=== PATIENT | female | born 1950 | race Caucasian/White ===

== ENCOUNTER 2018-06-27 11:17 | Day surgery (SDC) | payer OTHER ==
[2018-06-26 11:26] VITALS: BMI 40.1
[2018-06-27 13:33] LABS: #Eosinphils 0.2 thou/uL (0.0-0.7); #Lymphocytes 2.1 thou/uL (1.20-3.40); #Monocytes 0.7 thou/uL (0.11-0.59); %Basophils 0.2 % (0.0-1.0); %Eosinophils 1.7 % (0.0-10.0); %Lymphocytes 23.8 % (21.0-51.0); %Monocytes 7.5 % (0.0-10.0); %Neutrophils 66.9 % (42.0-75.0); Hemoglobin 15.7 g/dL (12.0-16.0); Mean Corpuscular HGB CONC 33.4 g/dL (32.0-36.0); Mean Corpuscular Hemoglobin 30.8 pg (27.0-31.0); Mean Corpuscular Volume 92.2 fL (78.0-98.0); Mean Platelet Volume 7.6 fL (7.4-10.4); Platelet Count 271 thou/uL (130-400); RBC Distribution Width 12.1 % (11.5-14.5)
[2018-06-27 13:40] LABS: INR-International Normal Ratio 1.2; Prothrombin Time 15.6 SEC (12.0-14.7)
[2018-06-27 13:54] LABS: Anion Gap 15 mmol/L (10-20); BUN (Urea Nitrogen) 18 mg/dL (9.8-20.1); Calc. Creatinine Clearance 121 mL/min (70-130); Calcium 9.7 mg/dL (7.8-10.44); Carbon Dioxide 25 mmol/L (23-31); Chloride 102 mmol/L (98-107); Estimated GFR-MDRD 61; Glucose 96 mg/dL (80-115); Potassium 4.4 mmol/L (3.5-5.1); Sodium 138 mmol/L (136-145)
[2018-06-27] MEDS ORDERED: Lidocaine 1% PF 5 ML VIAL ONE (16:35)
[2018-06-27] MEDS ORDERED: PROPOFOL 200 MG/20 ML VIAL ONE (16:35)
--- NOTE | 2018-06-27 21:28 | OP ---
DATE OF PROCEDURE: 06/27/2018 REASON FOR PROCEDURE: Mrs. La is a 68-year-old woman with history of persisting atrial fibrillation with prior failed cardioversions. She is here for repeated cardioversion, on flecainide therapy. She has been anticoagulated without interruption with Eliquis. DESCRIPTION OF PROCEDURE: The patient received propofol by Anesthesia specialist. After adequate level of sedation achieved, a synchronized 200-joule shock promptly converted the patient back to sinus rhythm. Return rate is about 45 to 50 beats per minute. The patient tolerated the procedure well. No complications noted. CONCLUSION: Successful cardioversion. PLAN: Continue Eliquis and flecainide for medical therapy and monitor for recurrent arrhythmias. Consider pulmonary venous isolation procedure if symptomatic atrial fibrillation recurrence is seen. Job ID: [id number]
--- NOTE | 2018-06-30 22:35 | EKG ---
Test Reason : PREOP CARDIOVERSION Blood Pressure : / mmHG Vent. Rate : 096 BPM Atrial Rate : 234 BPM P-R Int : 000 ms QRS Dur : 092 ms QT Int : 404 ms P-R-T Axes : 000 082 031 degrees QTc Int : 510 ms Atrial fibrillation Nonspecific ST abnormality , probably digitalis effect Prolonged QT Abnormal ECG No previous ECGs available Confirmed by Lang LARA ([id number]) on 06/30/2018 10:35:34 PM Referred By: BERNADETTE Confirmed By:Lang LARA
== END 2018-06-27 14:45 | disposition home or self-care (01) ==
LOC: SDC 11:17
PROVIDERS: ATTEND Internal Medicine Cardiovascular Disease
PROC: 5A2204Z Restoration of Cardiac Rhythm, Single (ICD-10-PCS; principal; 2018-06-27)
DX: I48.1 Persistent atrial fibrillation (principal); E78.5 Hyperlipidemia, unspecified; I10 Essential (primary) hypertension; Z79.01 Long term (current) use of anticoagulants; Z79.899 Other long term (current) drug therapy; Z88.0 Allergy status to penicillin; Z98.890 Other specified postprocedural states
CPT/HCPCS: 36415; 80048; 85025; 85610; 85730; 92960; 93005; 93010

== ENCOUNTER 2024-02-20 08:37 | Outpatient (CLI) | payer OTHER ==
[2024-02-20 10:01] LABS: #Basophils 0.03 10x3/uL (0.0-0.2); %Basophils 0.4 % (0.0-1.0); %Eosinophils 0.8 % (0.0-10.0); %Lymphocytes 22.5 % (21.0-51.0); %Neutrophils 69.9 % (42.0-75.0); Hematocrit 40.4 % (36.0-47.0); Hemoglobin 13.8 g/dL (12.0-16.0); Mean Corpuscular HGB CONC 34.2 g/dL (32.0-36.0); Mean Corpuscular Hemoglobin 29.9 pg (27.0-31.0); Mean Corpuscular Volume 87.6 fL (78.0-98.0); Mean Platelet Volume 9.9 fL (7.4-10.4); Platelet Count 263 10x3/uL (130-400); RBC Distribution Width 12.4 % (11.5-14.5); Red Blood Cell (RBC) Count 4.61 mill/uL (4.20-5.40)
[2024-02-20 10:23] LABS: Anion Gap 15 mmol/L (10-20); BUN (Urea Nitrogen) 19 mg/dL (9.8-20.1); Calc. Creatinine Clearance 0 mL/min (70-130); Calcium 9.6 mg/dL (7.8-10.44); Carbon Dioxide 25 mmol/L (23-31); Chloride 103 mmol/L (98-107); Estimated GFR 74; Glucose 108 mg/dL (83-110); Potassium 3.2 mmol/L (3.5-5.1); Sodium 140 mmol/L (136-145)
[2024-02-20 10:25] LABS: INR-International Normal Ratio 1.5; PTT 35.5 sec (22.9-36.1)
== END 2024-02-20 08:38 | disposition home or self-care (01) ==
LOC: LABBT 08:37
PROVIDERS: ATTEND Internal Medicine Cardiovascular Disease
DX: Z01.812 Encounter for preprocedural laboratory examination (principal); I48.0 Paroxysmal atrial fibrillation
CPT/HCPCS: 80048; 85025; 85610; 85730

== ENCOUNTER 2024-02-24 06:00 | Day surgery (SDC) | payer OTHER ==
[2024-02-24 06:50] LABS: Anion Gap 19 mmol/L (10-20); BUN (Urea Nitrogen) 21 mg/dL (9.8-20.1); Calc. Creatinine Clearance 0 mL/min (70-130); Calcium 9.5 mg/dL (7.8-10.44); Carbon Dioxide 22 mmol/L (23-31); Chloride 104 mmol/L (98-107); Estimated GFR 68; Glucose 128 mg/dL (83-110); Potassium 2.7 mmol/L (3.5-5.1); Sodium 142 mmol/L (136-145)
[2024-02-24] MEDS ORDERED: Protamine Sulfate 50 MG/5 ML VIAL ONE ×2 (07:18→10:43)
[2024-02-24] MEDS ORDERED: Heparin 10,000 UNITS/ 10 ML VIAL ONE (07:18)
[2024-02-24] MEDS ORDERED: Heparin 25,000 units/D5W 500 ML ONE (07:18)
[2024-02-24] MEDS ORDERED: Rocuronium Bromide 10 MG/ML (10ML VIAL) ONE ×2 (07:27→09:33)
[2024-02-24] MEDS ORDERED: fentaNYL 50 mcg/mL 1 mL Vial ONE (07:27)
[2024-02-24] MEDS ORDERED: Ondansetron PF 4 MG/2 ML Vial ONE (07:27)
[2024-02-24] MEDS ORDERED: Dexamethasone 20 MG/5 ML VIAL ONE (07:27)
[2024-02-24] MEDS ORDERED: Isoproterenol 0.2 MG/1 ML AMP ONE ×2 (07:35→09:05)
[2024-02-24] MEDS ORDERED: Glycopyrrolate 0.2 MG/ML 5 ML SYRINGE ONE (09:33)
[2024-02-24] MEDS ORDERED: ePHEDrine Sulfate 50 MG/10 ML VIAL ONE (10:42)
[2024-02-24] MEDS ORDERED: PHENYLEPHRINE-NS 100 MCG/ML 10 ML SYRINGE ONE (10:54)
[2024-02-24] MEDS ORDERED: SUGAMMADEX SODIUM 200 MG/2 ML VIAL ONE (11:00)
== END 2024-02-24 15:43 | disposition home or self-care (01) ==
LOC: SDC 06:00
PROVIDERS: ATTEND Internal Medicine Cardiovascular Disease
PROC: 4A023FZ Measurement of Cardiac Rhythm, Percutaneous Approach (ICD-10-PCS; principal; 2024-02-24)
DX: I48.0 Paroxysmal atrial fibrillation (principal); I48.92 Unspecified atrial flutter; I10 Essential (primary) hypertension; E78.5 Hyperlipidemia, unspecified; G47.33 Obstructive sleep apnea (adult) (pediatric); Z90.710 Acquired absence of both cervix and uterus; Z88.0 Allergy status to penicillin; Z79.01 Long term (current) use of anticoagulants; Z79.899 Other long term (current) drug therapy; E66.01 Morbid (severe) obesity due to excess calories
CPT/HCPCS: 36415; 80048; 85347; 93623; 93656; 93657; C1730; C1732; C1733; C1759; C1760; C1766; C1769; C1894; J1100; J1644; J2405; J2720; J3010

== ENCOUNTER 2024-04-13 08:37 | Inpatient (IN) | payer OTHER ==
[2024-04-13 09:46] LABS: #Basophils 0.03 10x3/uL (0.0-0.2); #Eosinophils Less than 0.03 10x3/uL (0.0-0.7); %Basophils 0.2 % (0.0-1.0); %Eosinophils 0.1 % (0.0-10.0); %Lymphocytes 9.4 % (21.0-51.0); %Monocytes 3.2 % (0.0-10.0); %Neutrophils 86.7 % (42.0-75.0); Hematocrit 47.5 % (36.0-47.0); Hemoglobin 16.2 g/dL (12.0-16.0); Mean Corpuscular HGB CONC 34.1 g/dL (32.0-36.0); Mean Corpuscular Hemoglobin 29.3 pg (27.0-31.0); Mean Corpuscular Volume 86.1 fL (78.0-98.0); Mean Platelet Volume 9.3 fL (7.4-10.4); Platelet Count 326 10x3/uL (130-400); Red Blood Cell (RBC) Count 5.52 mill/uL (4.20-5.40)
[2024-04-13 10:02] LABS: ALT (SGPT) 16 U/L (Less than 34); AST (SGOT) 25 U/L (11-34); Albumin 4.2 g/dL (3.1-4.5); Alkaline Phosphatase 88 U/L (40-110); Anion Gap 16 mmol/L (10-20); BUN (Urea Nitrogen) 15 mg/dL (9.8-20.1); Bilirubin, Total 0.8 mg/dL (0.3-1.2); Calc. Creatinine Clearance 0 mL/min (70-130); Calcium 9.9 mg/dL (7.8-10.44); Carbon Dioxide 27 mmol/L (23-31); Chloride 97 mmol/L (98-107); Estimated GFR 64; Globulin 4.2 g/dL (2.4-3.5); Glucose 146 mg/dL (83-110); Protein, Total 8.4 g/dL (5.8-8.1); Sodium 137 mmol/L (136-145)
[2024-04-13 10:16] LABS: Troponin I Less than 0.010 ng/mL (< 0.028)
[2024-04-13] MEDS ORDERED: Potassium Chloride 20 MEQ TAB ONE (11:38)
[2024-04-13] MEDS ORDERED: Bisacodyl 5 MG TAB PO PRN (11:58)
[2024-04-13] MEDS ORDERED: Calcium Carbonate 500 MG ChewTAB PO PRN (11:58)
[2024-04-13] MEDS ORDERED: Senokot S 8.6-50 MG TAB PO PRN (11:58)
[2024-04-13] MEDS: Sertraline 100 MG TAB PO SCH (15:38)
[2024-04-13] MEDS: Metoprolol Tartrate 100 MG TAB PO SCH (15:38)
[2024-04-13] MEDS: Acetaminophen 325 MG TAB PO PRN (15:38)
[2024-04-13] MEDS: Sodium Chloride 0.9% 1,000 ML IV SCH (15:39)
[2024-04-13] MEDS: Apixaban 5 MG TAB PO SCH ×2 (15:41→20:40)
[2024-04-13 16:46] LABS: Bilirubin Negative (Negative); Blood, Urine Negative (Negative); CAUTI Indications for Culture Fever or rigors; Clarity Clear (Clear); Glucose, Urine (Dipstick) Normal (Negative); Ketone, Urine 10 mg/dL (Negative); Leukocyte 25 Leu/uL (Negative); Nitrite Negative (Negative); Protein, Urine (Dipstick) Negative (Neg-Trace); RBC/HPF 0-3 HPF (0-3); Specific Gravity, Urine 1.011 (1.002-1.036); Squamous Epithelial 0-3 HPF (0-3); Urobilinogen Normal mg/dL (Less than 2)
[2024-04-13 16:47] LABS: Bacteria/HPF 1+ HPF (None Seen)
[2024-04-13 16:48] LABS: Urine Culture Reflex No No
[2024-04-13 17:11] LABS: Influenza A by NAA Not Detected (NotDetected); Influenza B by NAA Not Detected (NotDetected); RSV by NAA Not Detected (NotDetected); SARS-CoV-2 NAA Rapid Test Not Detected (NotDetected)
[2024-04-13] MEDS ORDERED: Electrolyte Replacement Protocol 1 EACH FS SCH (17:30)
[2024-04-13] MEDS ORDERED: Electrolyte Replacement Protocol FS PRN (17:45)
[2024-04-13 17:56] LABS: Magnesium 1.8 mg/dL (1.6-2.6)
[2024-04-13 19:17] VITALS: BMI 39.5
[2024-04-13] MEDS: Magnesium 2 GM/50 ML(in water) 2 GM in Premix 1 BAG IVPB SCH (20:39)
[2024-04-13] MEDS: Sertraline 25 MG TAB PO SCH (20:40)
[2024-04-13] MEDS: hydrOXYzine 25 MG TAB PO SCH (20:41)
[2024-04-14 05:26] LABS: #Basophils 0.03 10x3/uL (0.0-0.2); %Basophils 0.3 % (0.0-1.0); %Eosinophils 0.5 % (0.0-10.0); %Lymphocytes 22.8 % (21.0-51.0); %Monocytes 7.1 % (0.0-10.0); Hematocrit 43.5 % (36.0-47.0); Hemoglobin 14.9 g/dL (12.0-16.0); Mean Corpuscular HGB CONC 34.3 g/dL (32.0-36.0); Mean Corpuscular Hemoglobin 29.9 pg (27.0-31.0); Mean Corpuscular Volume 87.2 fL (78.0-98.0); Mean Platelet Volume 9.5 fL (7.4-10.4); Platelet Count 241 10x3/uL (130-400); RBC Distribution Width 12.2 % (11.5-14.5); Red Blood Cell (RBC) Count 4.99 mill/uL (4.20-5.40)
[2024-04-14 06:04] LABS: Anion Gap 14 mmol/L (10-20); BUN (Urea Nitrogen) 11 mg/dL (9.8-20.1); Calc. Creatinine Clearance 128 mL/min (70-130); Calcium 8.7 mg/dL (7.8-10.44); Carbon Dioxide 22 mmol/L (23-31); Chloride 106 mmol/L (98-107); Estimated GFR 83; Glucose 98 mg/dL (83-110); Potassium 3.3 mmol/L (3.5-5.1); Sodium 139 mmol/L (136-145)
[2024-04-14] MEDS: Atorvastatin Calcium 10 MG TAB PO SCH (09:56)
[2024-04-14] MEDS: Potassium Chloride 20 MEQ TAB PO SCH (09:57)
[2024-04-14] MEDS: ALPRAZolam 0.5 MG TAB PO PRN (10:04)
[2024-04-14] MEDS ORDERED: Amlodipine 10 MG TAB PO PRN (12:26)
[2024-04-14] MEDS: cloNIDine 0.1 MG TAB PO SCH (14:10)
[2024-04-14] MEDS: cefTRIAXone\\ROCEPHIN 1 GM in Sodium Chloride 0.9% 100 ML IVPB SCH (14:10)
[2024-04-14 16:30] VITALS: BMI 39.5
[2024-04-14] MEDS: Magnesium Oxide 400 MG TAB PO SCH (20:01)
[2024-04-14] MEDS: Flecainide 50 MG TAB PO SCH (20:02)
[2024-04-15 05:50] LABS: #Basophils 0.05 10x3/uL (0.0-0.2); %Basophils 0.6 % (0.0-1.0); %Lymphocytes 28.7 % (21.0-51.0); %Neutrophils 62.5 % (42.0-75.0); Hematocrit 40.2 % (36.0-47.0); Hemoglobin 13.8 g/dL (12.0-16.0); Mean Corpuscular HGB CONC 34.3 g/dL (32.0-36.0); Mean Corpuscular Volume 87.4 fL (78.0-98.0); Mean Platelet Volume 10.2 fL (7.4-10.4); Platelet Count 218 10x3/uL (130-400); RBC Distribution Width 12.3 % (11.5-14.5)
[2024-04-15 06:00] LABS: Chloride 108 mmol/L (98-107); Potassium 3.3 mmol/L (3.5-5.1); Sodium 140 mmol/L (136-145)
[2024-04-15 06:01] LABS: Calcium 8.9 mg/dL (7.8-10.44); Glucose 96 mg/dL (83-110)
[2024-04-15 06:03] LABS: Anion Gap 11 mmol/L (10-20); Carbon Dioxide 24 mmol/L (23-31)
[2024-04-15 06:05] LABS: BUN (Urea Nitrogen) 13 mg/dL (9.8-20.1); Calc. Creatinine Clearance 143 mL/min (70-130); Estimated GFR 92
[2024-04-15] MEDS: Magnesium 2 GM/50 ML(in water) 2 GM in Premix 1 BAG IVPB SCH (07:46)
[2024-04-15] MEDS: Potassium Chloride 20 MEQ TAB PO SCH (09:31)
[2024-04-15] MEDS: Potassium Chloride 20 MEQ in Premix 1 BAG IVPB SCH (10:07)
[2024-04-15] MEDS: cloNIDine 0.1 MG TAB PO SCH (13:01)
[2024-04-15] MEDS ORDERED: PROPOFOL 20 ML ONE (13:02)
[2024-04-15] MEDS ORDERED: Atropine Sulfate 1 mg/10 ml Syringe ONE (13:10)
[2024-04-15] MEDS: Enoxaparin 120 MG/0.8 ML SYRINGE SC SCH (13:52)
[2024-04-15 17:16] VITALS: BP 147/74; TEMP 98
== END 2024-04-15 17:41 | disposition home or self-care (01) | DRG 310 ==
LOC: ERS 08:37 → ERHOLD 12:55 → OBS 15:28 → OBSVTOIN 04-14 12:40
PROVIDERS: ADMIT Internal Medicine; ATTEND Internal Medicine
PROC: 5A2204Z Restoration of Cardiac Rhythm, Single (ICD-10-PCS; principal; 2024-04-15)
DX: I48.0 Paroxysmal atrial fibrillation (principal); E83.42 Hypomagnesemia; E66.9 Obesity, unspecified; F41.0 Panic disorder [episodic paroxysmal anxiety]; E87.6 Hypokalemia; I10 Essential (primary) hypertension; E78.5 Hyperlipidemia, unspecified; Z79.01 Long term (current) use of anticoagulants; Z68.39 Body mass index [BMI] 39.0-39.9, adult; Z88.0 Allergy status to penicillin; Z79.899 Other long term (current) drug therapy
CPT/HCPCS: 0241U; 36415; 71045; 80048; 80053; 81001; 83735; 83880; 84484; 85025; 87081; 87086; 87430; 92960; 93005; 93010; 93306; 94760; 96374; G0378; J0461; J0696; J1650; J2704; J3475; J3480

== ENCOUNTER 2025-01-26 23:10 | Inpatient (IN) | payer OTHER ==
[2025-01-27 00:06] LABS: #Basophils 0.04 10x3/uL (0.0-0.2); #Eosinophils 0.08 10x3/uL (0.0-0.7); #Monocytes 0.70 10x3/uL (0.11-0.59); #Neutrophils 7.74 10x3/uL (1.40-6.50); %Basophils 0.4 % (0.0-1.0); %Eosinophils 0.7 % (0.0-10.0); %Lymphocytes 20.4 % (21.0-51.0); %Monocytes 6.5 % (0.0-10.0); %Neutrophils 71.7 % (42.0-75.0); Hematocrit 41.0 % (36.0-47.0); Hemoglobin 14.0 g/dL (12.0-16.0); Mean Corpuscular Hemoglobin 29.2 pg (27.0-31.0); Mean Corpuscular Volume 85.6 fL (78.0-98.0); Platelet Count 230 10x3/uL (130-400); Red Blood Cell (RBC) Count 4.79 mill/uL (4.20-5.40); White Blood Cell (WBC) Count 10.79 10x3/uL (4.8-10.8)
[2025-01-27 00:21] LABS: Acetaminophen Less than 10 mcg/mL (Less than 10); Salicylate Less than 8.0 mg/dL (Less than 8.0)
[2025-01-27 00:22] LABS: ALT (SGPT) 19 U/L (Less than 34); AST (SGOT) 34 U/L (11-34); Albumin 3.5 g/dL (3.1-4.5); Alkaline Phosphatase 75 U/L (40-110); Anion Gap 14 mmol/L (10-20); BUN (Urea Nitrogen) 14 mg/dL (9.8-20.1); Bilirubin, Total 0.7 mg/dL (0.3-1.2); Calc. Creatinine Clearance 0 mL/min (70-130); Calcium 9.4 mg/dL (7.8-10.44); Carbon Dioxide 27 mmol/L (23-31); Chloride 100 mmol/L (98-107); Globulin 3.4 g/dL (2.4-3.5); Glucose 85 mg/dL (83-110); Potassium 3.1 mmol/L (3.5-5.1); Sodium 138 mmol/L (136-145)
[2025-01-27 00:41] LABS: Actual Bicarbonate (HCO3v) 28.3 mEq/L (22-28); Base Excess 1.6 mEq/L (-2.0 to +3.0); Calcium, Ionized (venous) 1.17 mmol/L (1.16-1.32); Chloride (VBG) 100 mmol/L (98-106); Hematocrit-VBG 45 % (36.0-47.0); Hemoglobin (Hb) 15.2 g/dL (11.7-16.1); Potassium (VBG) 3.13 mmol/L (3.70-5.30); Sodium 141 mmol/L (133-146)
[2025-01-27] MEDS ORDERED: Calcium Carbonate 500 MG ChewTAB PO PRN (03:32)
[2025-01-27] MEDS ORDERED: Acetaminophen 325 MG TAB PO PRN (03:32)
[2025-01-27] MEDS ORDERED: cloNIDine 0.1 MG TAB PO PRN (03:37)
[2025-01-27] MEDS ORDERED: hydrALAZINE 20 MG/ML VIAL SLOW IVP PRN (04:19)
[2025-01-27] MEDS: NS 0.9% w/ 40 MEQ KCL 1,000 ML IV SCH ×2 (05:14→06:36)
[2025-01-27 05:22] LABS: Bacteria/HPF None Seen HPF (None Seen); CAUTI Indications for Culture Dysuria,urgency,freq; Glucose, Urine (Dipstick) Normal (Negative); Leukocyte Negative Leu/uL (Negative); Protein, Urine (Dipstick) Negative (Neg-Trace); RBC/HPF 0-3 HPF (0-3); Specific Gravity, Urine 1.013 (1.002-1.036); WBC/HPF 0-3 HPF (0-3)
[2025-01-27 05:25] LABS: Urine Culture Reflex No No
[2025-01-27 05:31] LABS: Cocaine Metabolite Screen Negative (Negative); THC/Cannabinoid Screen Negative (Negative); Tricyclic Screen Negative (Negative)
[2025-01-27 08:35] LABS: Anion Gap 15 mmol/L (10-20); BUN (Urea Nitrogen) 14 mg/dL (9.8-20.1); Calc. Creatinine Clearance 146 mL/min (70-130); Calcium 9.4 mg/dL (7.8-10.44); Carbon Dioxide 24 mmol/L (23-31); Chloride 103 mmol/L (98-107); Glucose 81 mg/dL (83-110); Magnesium 2.1 mg/dL (1.6-2.6); Potassium 3.6 mmol/L (3.5-5.1); Sodium 138 mmol/L (136-145)
[2025-01-27] MEDS: Famotidine/PF 20 mg/2ml Vial SLOW IVP SCH (11:27)
[2025-01-27] MEDS: cloNIDine 0.1 MG TAB PO SCH (11:47)
[2025-01-27] MEDS: Apixaban 5 MG TAB PO SCH ×2 (11:47→20:33)
[2025-01-27] MEDS: Famotidine 20 MG TAB PO SCH (11:47)
[2025-01-27] MEDS: Mupirocin 1 GM TUBE NASAL DECOLONIZATION NASAL SCH (20:33)
[2025-01-28 04:07] VITALS: TEMP 98
[2025-01-28 05:16] LABS: Anion Gap 16 mmol/L (10-20); BUN (Urea Nitrogen) 13 mg/dL (9.8-20.1); Calc. Creatinine Clearance 158 mL/min (70-130); Calcium 8.9 mg/dL (7.8-10.44); Carbon Dioxide 20 mmol/L (23-31); Chloride 108 mmol/L (98-107); Glucose 77 mg/dL (83-110); Potassium 3.9 mmol/L (3.5-5.1); Sodium 140 mmol/L (136-145)
[2025-01-28 05:18] LABS: #Basophils 0.03 10x3/uL (0.0-0.2); #Eosinophils 0.10 10x3/uL (0.0-0.7); #Monocytes 0.93 10x3/uL (0.11-0.59); #Neutrophils 5.93 10x3/uL (1.40-6.50); %Basophils 0.3 % (0.0-1.0); %Eosinophils 1.1 % (0.0-10.0); %Lymphocytes 23.1 % (21.0-51.0); %Monocytes 10.2 % (0.0-10.0); %Neutrophils 65.1 % (42.0-75.0); Hematocrit 42.5 % (36.0-47.0); Hemoglobin 14.3 g/dL (12.0-16.0); Mean Corpuscular Hemoglobin 29.2 pg (27.0-31.0); Mean Corpuscular Volume 86.7 fL (78.0-98.0); Platelet Count 212 10x3/uL (130-400); Red Blood Cell (RBC) Count 4.90 mill/uL (4.20-5.40); White Blood Cell (WBC) Count 9.11 10x3/uL (4.8-10.8)
[2025-01-28 06:06] VITALS: BMI 42.0
[2025-01-28 10:56] VITALS: BP 140/72
[2025-01-28 16:49] VITALS: BMI 42.0
== END 2025-01-28 11:20 | disposition short-term general hospital (02) | DRG 918 ==
LOC: ERS 23:10 → EEVIPCON 23:10 → ERHOLD 01-27 02:49 → IMCU/EMU 01-27 03:24
PROVIDERS: ADMIT Internal Medicine; ATTEND Internal Medicine
DX: T42.4X2A Poisoning by benzodiazepines, intentional self-harm, initial encounter (principal); Z88.0 Allergy status to penicillin; E78.5 Hyperlipidemia, unspecified; F41.9 Anxiety disorder, unspecified; Z98.890 Other specified postprocedural states; G47.30 Sleep apnea, unspecified; I48.0 Paroxysmal atrial fibrillation; F41.0 Panic disorder [episodic paroxysmal anxiety]; T14.91XA Suicide attempt, initial encounter; E87.6 Hypokalemia; I95.9 Hypotension, unspecified; R33.9 Retention of urine, unspecified; F32.A Depression, unspecified; Z79.899 Other long term (current) drug therapy
CPT/HCPCS: 36415; 36416; 80048; 80053; 80306; 80307; 81001; 82805; 83735; 85025; 93005; J3480

== ENCOUNTER 2025-03-13 08:19 | Emergency (ER) | payer OTHER ==
[2025-03-13] MEDS ORDERED: Iopamidol-370 76% 500 ML MDV (1 ML CHARGE) ONE (08:57)
[2025-03-13 11:39] LABS: ALT (SGPT) 15 U/L (Less than 34); AST (SGOT) 20 U/L (11-34); Albumin 4.1 g/dL (3.1-4.5); Alkaline Phosphatase 87 U/L (40-110); Anion Gap 20 mmol/L (10-20); BUN (Urea Nitrogen) 14 mg/dL (9.8-20.1); Bilirubin, Total 0.7 mg/dL (0.3-1.2); Calc. Creatinine Clearance 0 mL/min (70-130); Calcium 9.9 mg/dL (7.8-10.44); Carbon Dioxide 23 mmol/L (23-31); Chloride 97 mmol/L (98-107); Globulin 3.6 g/dL (2.4-3.5); Glucose 122 mg/dL (83-110); Potassium 3.1 mmol/L (3.5-5.1); Sodium 137 mmol/L (136-145)
[2025-03-13] MEDS ORDERED: Acetaminophen 500 MG TAB ONE (11:53)
[2025-03-13 12:03] LABS: #Basophils Less than 0.03 10x3/uL (0.0-0.2); #Eosinophils Less than 0.03 10x3/uL (0.0-0.7); #Monocytes 0.58 10x3/uL (0.11-0.59); #Neutrophils 10.32 10x3/uL (1.40-6.50); %Basophils 0.2 % (0.0-1.0); %Eosinophils 0.1 % (0.0-10.0); %Lymphocytes 14.7 % (21.0-51.0); %Monocytes 4.5 % (0.0-10.0); %Neutrophils 80.1 % (42.0-75.0); Hematocrit 44.0 % (36.0-47.0); Hemoglobin 15.1 g/dL (12.0-16.0); Mean Corpuscular Hemoglobin 29.2 pg (27.0-31.0); Mean Corpuscular Volume 84.9 fL (78.0-98.0); Platelet Count 310 10x3/uL (130-400); Red Blood Cell (RBC) Count 5.18 mill/uL (4.20-5.40); White Blood Cell (WBC) Count 12.87 10x3/uL (4.8-10.8)
[2025-03-13 13:50] LABS: Magnesium 2.1 mg/dL (1.6-2.6)
== END 2025-03-13 15:53 | disposition home or self-care (01) ==
LOC: ERS 08:19
DX: M54.9 Dorsalgia, unspecified (principal); F41.9 Anxiety disorder, unspecified; F32.A Depression, unspecified; E87.6 Hypokalemia; I10 Essential (primary) hypertension; I48.91 Unspecified atrial fibrillation; E78.5 Hyperlipidemia, unspecified; Z79.01 Long term (current) use of anticoagulants; Z79.899 Other long term (current) drug therapy
CPT/HCPCS: 71045; 71275; 74174; 80053; 83690; 83735; 83880; 84484; 85025; 93005